=== PATIENT | male | born 1960 | race African-American/Black ===

== ENCOUNTER 2025-09-04 11:03 | Inpatient (IN) | payer MEDICAID ==
[~2025-09-04] VITALS: Ht 205.7 cm; Wt 159.0 kg
[~2025-09-04 11:03] MED LIST: CHOL400D7 PO; DICL100G58 TP; FOLI-43 MT; FURO-151 MT; LIDO700A30 TP; OXYC-582 MT; POLY17PO43 PO; PROT40 MT; SULF1TAB48 MT; TIZA4CAP6 MT
[2025-09-04 11:08] VITALS: O2SAT 100
[2025-09-04 12:34] LABS: BASOPHILS % 0.5 % (0.0-2.0); EOSINOPHILS % 5.6 % (0.0-5.0); HEMATOCRIT. 22.2 % (42.0-52.0); LYMPHOCYTES % 8.1 % (20.0-50.0); MEAN PLATELET VOLUME 6.9 fl (7.4-10.4); MONOCYTES % 8.7 % (2.0-8.0); NEUTROPHILS % 77.1 % (40.0-76.0); PLATELET 403 x1000/uL (130-400); RED BLOOD CELL COUNT 2.64 mill/uL (4.7-6.1); RED CELL DISTRIBUTION WIDTH 21.7 % (11.6-14.6)
[2025-09-04 12:52] LABS: CREATININE 1.3 mg/dL (0.6-1.3); UREA NITROGEN BLOOD 21 mg/dL (9-23)
[2025-09-04 12:53] LABS: TROPONIN I HIGH SENSITIVITY 5 ng/L (3.0-53)
[2025-09-04 12:54] LABS: ASPARTATE AMINOTRANSFERASE 17 IU/L (<34); BILIRUBIN DIRECT 0.2 mg/dL (<=3.0)
[2025-09-04 12:55] LABS: BILIRUBIN TOTAL 0.4 mg/dL (0.1-1.0); PROTEIN TOTAL 6.2 g/dL (6.0-8.3)
[2025-09-04 12:56] LABS: HEMOGLOBIN. 7.0 g/dL (14.0-18.0)
[2025-09-04] MEDS: MORPHINE SULFATE 4 MG/ML INJ (FOR IV/IM USE) IV ONE (13:03)
[2025-09-04] MEDS ORDERED: CLONIDINE 0.1MG TABLET PO PRN (13:30)
[2025-09-04] MEDS ORDERED: ONDANSETRON HCL 4MG/2ML INJ IV PRN (13:30)
[2025-09-04] MEDS ORDERED: DOCUSATE SODIUM 100MG CAPSULE PO PRN (13:30)
[2025-09-04] MEDS ORDERED: MAGNESIUM/ALUMINUM HYDROXIDE/SIMETHICONE 30ML UDC PO PRN (13:30)
[2025-09-04] MEDS ORDERED: ACETAMINOPHEN 325MG TABLET PO PRN (13:30)
[2025-09-04] MEDS ORDERED: IPRATROPIUM/ALBUTEROL 0.5-3(2.5)MG/3ML NEB HHN PRN ×2 (13:30→15:30)
[2025-09-04] MEDS ORDERED: GUAIFENESIN 200MG/10ML SUGAR FREE UDC PO PRN (13:30)
[2025-09-04] MEDS ORDERED: PANTOPRAZOLE SODIUM 40 MG/VIAL IV SCH (14:15)
[2025-09-04 14:39] LABS: TROPONIN I HIGH SENSITIVITY 5 ng/L (3.0-53)
[2025-09-04 16:20] LABS: LACTATE DEHYDROGENASE 238 IU/L (120-246)
[2025-09-04 16:24] LABS: VITAMIN B12 SERUM 431 pg/mL (211-911)
[2025-09-04] MEDS: ACETAMINOPHEN 325MG TABLET PO PRN (18:40)
[2025-09-04 20:00] VITALS: BP 142/79; PULSE 97; RESP 19; TEMP 36.3; O2SAT 97
[2025-09-04 20:35] VITALS: BP 142/74; PULSE 97; RESP 19
[2025-09-04] MEDS: MORPHINE SULFATE 4 MG/ML INJ (FOR IV/IM USE) IV NR (20:35)
[2025-09-04] MEDS ORDERED: ENOXAPARIN 30MG/0.3ML SYR SUBCUT SCH (21:00)
[2025-09-06 09:07] LABS: FOLATE HEMATOCRIT 24.9 % (37.5-51.0)
[2025-09-08 13:11] LABS: FOLATE HEMOLYSATE 479.0 ng/mL (Not Estab.); FOLATE RBC 1924 ng/mL (>498)
== END 2025-09-04 22:01 | disposition left against medical advice (07) | DRG 48 ==
LOC: ER 11:03 → EDBEDREQ 13:54 → EDBEDREQTM 13:54 → 6WST 17:20
PROVIDERS: ADMIT Internal Medicine; ATTEND Internal Medicine
PROC: 30233N1 Transfusion of Nonautologous Red Blood Cells into Peripheral Vein, Percutaneous Approach (ICD-10-PCS; principal; 2025-09-04)
DX: G90.89 Other disorders of autonomic nervous system (principal); C20 Malignant neoplasm of rectum; I11.0 Hypertensive heart disease with heart failure; D64.9 Anemia, unspecified; N17.9 Acute kidney failure, unspecified; F12.10 Cannabis abuse, uncomplicated; J44.9 Chronic obstructive pulmonary disease, unspecified; I95.1 Orthostatic hypotension; I50.32 Chronic diastolic (congestive) heart failure; Z53.29 Procedure and treatment not carried out because of patient's decision for other reasons; G62.9 Polyneuropathy, unspecified; Z86.711 Personal history of pulmonary embolism; Z99.81 Dependence on supplemental oxygen; Z85.118 Personal history of other malignant neoplasm of bronchus and lung; Z91.148 Patient's other noncompliance with medication regimen for other reason
CPT/HCPCS: 36415; 71045; 73562; 80048; 80076; 82550; 82607; 82747; 83540; 83550; 83615; 84484; 85014; 85018; 85025; 85044; 85379; 86850; 86900; 86920; 93005; 93970; 99291; A4606; J2270; P9016